=== PATIENT | male | born 1940 | race Caucasian/White ===

== ENCOUNTER 2021-02-16 18:25 | Emergency (ER) | payer MEDICARE, OTHER ==
[~2021-02-16] VITALS: Ht 177.8 cm; Wt 93.0 kg
[~2021-02-16 18:25] MED LIST: CARVEDILOL12.5 MG PO; LOSARTAN POTAS100 MG PO; NITROSTAT0.4 MG SL; PLAVIX75 MG PO; SIMVASTATIN40 MG PO; TRAZODONE HCL100 MG PO
[2021-02-16] MEDS ORDERED: HYDROCODONE/APAP 5MG-325MG TAB PO ONE (18:45)
[2021-02-16] MEDS ORDERED: HYDROCODONE/APAP 5MG-325MG TAB ONE (18:59)
[2021-02-16] MEDS ORDERED: HYDROCODON-ACE1 EA11 PO (20:09)
== END 2021-02-16 20:49 | disposition home or self-care (01) ==
LOC: ER 18:46
DX: M12.812 Other specific arthropathies, not elsewhere classified, left shoulder (principal); M12.811 Other specific arthropathies, not elsewhere classified, right shoulder; M12.862 Other specific arthropathies, not elsewhere classified, left knee; M12.861 Other specific arthropathies, not elsewhere classified, right knee
CPT/HCPCS: 99283